=== PATIENT | female | born 2000 | race Caucasian/White ===

== ENCOUNTER 2019-07-14 19:43 | Emergency (ER) | payer SELFPAY ==
[2019-07-14 19:44] VITALS: BP 155/105; PULSE 87; RESP 17; TEMP 36.1; O2SAT 98; BMI 43.0
--- NOTE | 2019-07-14 22:02 | CT_ITS ---
STUDY: CT BRAIN WITHOUT CONTRAST REASON FOR EXAM: Female, 18 years old. Headache RADIATION DOSAGE (If Supplied By Facility): CTDIvol = ( 44.99 ) mGy, DLP = ( 796.11 ) mGycm TECHNIQUE: Transaxial CT imaging of the brain was performed without administration of intravenous contrast material. Individualized dose optimization techniques were used for this CT. COMPARISON: No relevant priors. FINDINGS: Normal soft tissue structures. Normal calvarium. Normal size ventricles and extra-axial spaces for the patient''s age. Normal white matter tracts of the cerebral hemispheres. Normal basal ganglia and thalami. There is a right-sided shunt catheter. Normal brainstem. Normal cerebellum. There is no intracranial hemorrhage. There are no findings of an acute ischemic infarction. Mild left paranasal sinus mucosal thickening. CT/Brain/Head without Contrast IMPRESSION: No acute intracranial pathology of the brain. Left paracentral sinus disease. Electronically Signed: Ludwig Elam DO at 22:56 EST Tel [phone], Service support ,
[2019-07-14 22:15] VITALS: PULSE 101; RESP 16
[2019-07-14] MEDS: Ipratropium/Albuterol Sulfate 3 ML AMPUL.NEB INHALATION (22:15)
[2019-07-14] MEDS: Azithromycin 250 MG Tablet 500 MG PO (22:25)
[2019-07-14] MEDS: predniSONE 20 MG Tablet 40 MG PO (22:25)
[2019-07-14 22:26] VITALS: PULSE 90; RESP 18; O2SAT 99
--- NOTE | 2019-07-14 22:45 | RAD_ITS ---
STUDY: X-RAY CHEST REASON FOR EXAM: Female, 18 years old. COUGH TECHNIQUE: Frontal and lateral views COMPARISON: None. FINDINGS: There is a right-sided shunt catheter. The lungs are clear and expanded. There is no demonstrated pleural abnormality. Normal size heart. Normal mediastinum and nathalie. Normal visualized pulmonary arteries. Normal visualized aortic arch and descending thoracic aorta. Normal visualized thoracic spine. Normal visualized ribs, clavicles, and shoulders. There is no demonstrated abnormality of the visualized soft tissue structures of the upper abdomen. RAD/Chest PA and Lateral IMPRESSION: Normal x-ray examination of the chest. Electronically Signed: Ludwig Elam DO at 23:05 EST Tel [phone], Service support ,
--- NOTE | 2019-07-14 23:15 | ED.DCSUM_ITS ---
- ER Visit Summary Date of Service: 07/14/19 Chief Complaint: Dry cough History of Present Illness: The patient is a 18 F with a dry cough over the past month, worse over the past week and also associated with nausea, vomiting over the past week. Nausea and vomiting is worse after coughing episodes. She also has ongoing headaches. 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 She gets headaches daily since shunt placement. Headaches are worse since she is coughing. Denies any other associated symptoms like neurologic symptoms. Denies fevers. Denies trauma. She has a history of asthma. She tried an inhaler at home, but it is n ot helping. No recent steroids or antibiotics. Physical Examination: Afebrile and vital signs are unremarkable except for blood pressure 155/105. Head and neck atraumatic. HEENT exam unremarkable. Neck nontender with good range of motion. Heart regular. Lungs clear. Abdomen soft. Skin appears normal. No focal or lateralizing neurologic abnormalities grossly. Test Results: Chest x-ray showed nothing acute. CT brain showed nothing acute. Emergency Department Course and Treatment: Patient has signs and symptoms of bronchitis. She has posttussive emesis. She also has ongoing headaches for years. These are worse from coughing. Her symptoms seem to all be related to her ongoing cough. Patient received a breathing treatment, prednisone, azithromycin. On reevaluation, cough is improved, but she continues to have a headache. She was treated with naproxen for her headache and we will also treat with Tessalon Perles. I believe the patient is appropriate for outpatient follow-up based on her results, symptoms, exam. Will prescribe Tessalon, azithromycin, naproxen, and prednisone. Continue inhalers as needed. Follow-up with your outpatient doctors. Return right away for any new or worsening issues. Treatment Plan: As above Disposition: Discharge Impression: 1. Bronchitis 2. Headache This note was generated with [employer] dictation software. It may contain incorrect words, spelling, and punctuation that were not noted in review of the chart prior to signing ED Disposition - Plan for ED Patient: Referrals: Care Physician,No Primary [Primary Care Provider] -
--- NOTE | 2019-07-14 23:18 | ED.DEP ---
ED Disposition - Plan for ED Patient: Instructions: Acute Bronchitis, HEADACHE, Unspecified Prescriptions: Azithromycin 250 mg PO DAILY 4 Days #4 tab Prescription Printed Prednisone [Deltasone] 40 mg PO DAILY #8 tab Prescription Printed Naproxen [Naprosyn] 500 mg PO BID PRN #20 tab Prescription Printed Benzonatate [Tessalon Perle] 200 mg PO TID PRN PRN #20 cap PRN Reason: Cough Prescription Printed Additional Instructions: Follow up with your specialist
[2019-07-14] MEDS: Naproxen 500 MG Tablet PO (23:49)
[2019-07-14] MEDS: Benzonatate 100 MG Capsule 200 MG PO (23:49)
[2019-07-14 23:51] VITALS: BP 140/78; PULSE 98; RESP 18; O2SAT 100
== END 2019-07-14 23:51 | disposition home or self-care (01) ==
PROVIDERS: Emergency Provider Emergency Medicine
DX: J40 Bronchitis, not specified as acute or chronic (principal); R51 Headache; H54.62 Unqualified visual loss, left eye, normal vision right eye; Z98.2 Presence of cerebrospinal fluid drainage device; J45.909 Unspecified asthma, uncomplicated
CPT/HCPCS: 70450; 71046; 94640; 99283

== ENCOUNTER 2019-09-27 23:57 | Emergency (ER) | payer SELFPAY ==
[2019-09-27 23:59] VITALS: BP 164/111; PULSE 84; RESP 16; TEMP 36.7; O2SAT 98; BMI 36.3
--- NOTE | 2019-09-28 00:09 | ED.VIS.GEN ---
History of Present Illness Chief Complaint: Cold Sx Informant: Patient Narrative: Stated she has had a nonproductive cough sore throat sinus congestion for the last 3 days. No home treatment. No fevers or chills. No muscle aches. No nausea vomiting or diarrhea. Came in for further evaluation to make sure she does not have coronavirus. She has no exposures to coronavirus. No risk factors for coronavirus. Current severity is mild. She has sick contacts at work with URI symptoms. Redness of breath. Past Medical History - Allergies and Home Meds Allergies/Adverse Reactions: Allergies No Known Allergies Allergy (Verified 09/28/19 00:01) Primary Care Physician: Care Physician,No Primary [Primary Care Provider] - Prior records reviewed: Yes Past Medical History: - - Hydrocephalus with TECHNICAL SERVICE REP shunt Surgical History: - - TECHNICAL SERVICE REP shunt Lives: With Family Smoking Status: Current every day smoker Alcohol: None Drugs: None Review of Systems General: Denies: Chills, Fever, Sweats Eyes: Denies: Visual changes - bilaterally, Diplopia ENT: Reports: Rhinorrhea, Sore throat Cardiovascular: Denies: Chest pain, Palpitations Respiratory: Reports: Cough. Denies: Dyspnea, Dyspnea on exertion Gastrointestinal: Denies: Abdominal pain, Nausea, Vomiting, Diarrhea, Melena, Hematochezia Genitourinary: Denies: Dysuria, Hematuria, Frequency Musculoskeletal: Denies: Back pain, Extremity Pain Skin: Denies: Rash, Wounds Neurological: Denies: Weakness, Numbness Physical Exam Vital Signs/Narrative: Vital Signs Temp Pulse Resp BP Pulse Ox 09/27/19 23:59 98.0 F 84 16 164/111 H 98 General: Well nourished, Well developed, No Acute Distress Head: Normocephalic, Atraumatic Eyes: Perrl, EOMI ENT: Moist mucous membranes, No rhinorrhea Neck: Supple, Nontender, - - Palpated shunt with no pain Cardiovascular: Regular rate, Regular rhythm, No murmurs Respiratory: No distress, CTA bilaterally, Chest nontender Abdomen: Soft, Nontender, Nondistended, Normal bowel sounds Back: Nontender, Normal Inspection Extremities: Nontender, No edema Skin: Normal color, No rash Neurological: Alert, Oriented x3, Cranial nerves II-XII grossly intact, Normal Strength, Normal Sensation Psychological: Normal affect, Normal Mood Diagnostic/Tx/Re-eval - Medical Decision Making Patient reassured. I do not feel she has coronavirus. She likely has an upper respiratory infection. She will use [id number] symptomatic treatment. I do not feel she needs a flu swab or chest x-ray. She will follow-up as an outpatient. She will continue to monitor her symptoms at home ED Disposition - Plan for ED Patient: Disposition: Psychiatric Hospital or Unit Diagnosis: Upper respiratory infection Instructions: Adult Self-Care for Colds and Flu
[2019-09-28 00:10] VITALS: PULSE 84; RESP 16; O2SAT 98
[2019-09-28] MEDS: Ibuprofen 600 MG Tablet PO (00:19)
== END 2019-09-28 00:25 ==
PROVIDERS: Emergency Provider Emergency Medicine
DX: J06.9 Acute upper respiratory infection, unspecified (principal); F17.200 Nicotine dependence, unspecified, uncomplicated
CPT/HCPCS: 99282

== ENCOUNTER 2020-02-13 07:07 | Emergency (ER) | payer MEDICAID, SELFPAY ==
[2020-02-13 07:08] VITALS: BP 140/80; PULSE 99; RESP 16; TEMP 36.1; O2SAT 98; BMI 45.8
--- NOTE | 2020-02-13 07:56 | ED.VISSUMM ---
- ER Visit Summary Date of Service: 02/13/20 Chief Complaint: Lumps on breast History of Present Illness: The patient is a 19 F who is yet to establish that the [facility]. She is a G1, P0 at approximately 13 weeks of . She reports that she has been getting lumps on her breast intermittently for months. She has one that began 2 days ago. She describes a sharp pain instead of 10 when she touches it. She has no pain when she is not touching it. She states that these have always resolved on their own. This has not drained. Patient reports that yesterday she slipped on wet floor and fell onto her knees and abdomen. She denies any pain from the fall. No loss of consciousness. She denies any vaginal bleeding or discharge. She reports has had nausea in the mornings throughout her . However, she has not vomited. Physical Examination: Vitals: Stable. Afebrile. General: Well-nourished and well-developed. Head: Normocephalic atraumatic. Neck: Supple, no lymphadenopathy. No JVD. Nontender. Cardiovascular: Regular rate and rhythm. No murmurs. Respiratory: No respiratory distress. Clear to auscultation bilaterally. Abdominal: Soft, nontender, nondistended, normal bowel sounds. No guarding, rebound, or peritoneal signs. Back: Nontender. Extremities: Nontender, no edema. Skin: To the left breast there is a 2 cm erythematous area with no induration or fluctuance. This is just superior medial to her nipple. Neurologic: Alert and oriented ?3. Cranial nerves II through XII are intact. Normal strength and sensation. Psych: Normal affect. Test Results: Bedside ultrasound shows good movement/heartbeat. Emergency Department Course and Treatment: Patient was given clindamycin and Zofran p.o. I had a prolonged discussion with her that if this does not improve with conservative management she may end up requiring an incision and drainage. Treatment Plan: Patient was discussed with Taylor Paul. She will be discharged instructions to follow-up the [facility] in 2 days for another exam. She will be placed on clindamycin and Zofran at home. Return to the emergency department for any worsening symptoms. Disposition: To home in improved and stable condition. Impression: 1. Early abscess left breast. 2. Trimester . This note was generated with [employer] dictation software. It may contain incorrect words, spelling, and punctuation that were not noted in review of the chart prior to signing ED Disposition - Plan for ED Patient: Disposition: Home or Assisted Living Instructions: ED Abscess Antibiotic Treatment Only Prescriptions: Clindamycin HCl [Cleocin] 300 mg PO Q6H #28 cap Prescription Printed Ondansetron [Zofran Odt] 4 mg PO Q8H PRN PRN #10 tab PRN Reason: Nausea Prescription Printed Referrals: Taylor Paul CNM [Certified Nurse Gauge Operator] - 2 Days for wound check
[2020-02-13] MEDS: Clindamycin HCl 150 MG Capsule 300 MG PO (08:08)
[2020-02-13] MEDS: Ondansetron ODT 4 MG Tablet PO (08:09)
[2020-02-13 08:11] VITALS: PULSE 80; RESP 16; TEMP 36.6
== END 2020-02-13 08:11 | disposition home or self-care (01) ==
PROVIDERS: Emergency Provider Emergency Medicine
DX: O91.111 Abscess of breast associated with pregnancy, first trimester (principal); Z3A.13 13 weeks gestation of pregnancy; O10.911 Unspecified pre-existing hypertension complicating pregnancy, first trimester
CPT/HCPCS: 99283

== ENCOUNTER 2020-07-06 03:19 | Emergency (ER) | payer MEDICAID, SELFPAY ==
[2020-07-06 03:20] VITALS: BP 164/122; PULSE 118; RESP 20; TEMP 36.9; O2SAT 97; BMI 57.0
--- NOTE | 2020-07-06 03:24 | ED.VIS.GEN ---
History of Present Illness Chief Complaint: Rash Informant: Patient Onset: Days - 4 Context: Gradual Onset Timing: Continuous Quality: itchy, some burning/stinging Location: lower abd wall Current Severity: Severe Maximum Severity: Severe Worsened by: nothing Relieved by: scratching Associated Symptoms: none Narrative: Patient is 33 weeks and otherwise healthy, she has had a red itchy rash in her lower abdominal wall for the past 4 days. She denies any other symptoms. Feeling the baby move, no vaginal symptoms. 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 Denies: Abscess Physical Exam Vital Signs/Narrative: Vital Signs Temp Pulse Resp BP Pulse Ox 07/06/20 03:20 98.5 F 118 H 20 H 164/122 H 97 Inital Vital Signs reviewed: Yes General: Well nourished, Well developed, Obese, No Acute Distress Head: Normocephalic, Atraumatic Eyes: Perrl, EOMI Abdomen: Soft, Nontender, Nondistended, Normal bowel sounds, - - Rash lower abdominal wall, mostly in the middle Skin: Normal color, No Trauma, Rash - Blanching erythema with a peau d'orange appearance, nontender, foul-smelling and moist, lower abdominal wall beneath pannus, intertriginous as well. No abscess. Neurological: Alert, Oriented x3, Cranial nerves II-XII grossly intact, Normal Strength, Normal Sensation, Normal Gait Psychological: Normal affect, Normal Mood Diagnostic/Tx/Re-eval - Medical Decision Making This is likely Lisbeth, given the patient's obesity and the fact that this is intertriginous underneath her abdominal pannus. Will prescribe nystatin powder since it is moist and should be dried out in addition to needing antifungal. Given appropriate discharge instructions and should follow-up with her OB if not improving. ED Disposition - Plan for ED Patient: Disposition: Home or Assisted Living Diagnosis: Cutaneous candidiasis Instructions: ED Fungal Skin Infection (Tinea) Prescriptions: Nystatin Powder [Mycostatin Powder] 1 applic TOPICAL BID 10 Days #1 bottle Prescription Printed Referrals: OB, your [Other] - 1 Week if not improving
== END 2020-07-06 04:04 | disposition home or self-care (01) ==
LOC: ED 03:43
PROVIDERS: Emergency Provider Emergency Medicine
DX: O98.813 Other maternal infectious and parasitic diseases complicating pregnancy, third trimester (principal); B37.2 Candidiasis of skin and nail; Z3A.33 33 weeks gestation of pregnancy; Z87.891 Personal history of nicotine dependence
CPT/HCPCS: 99282

== ENCOUNTER 2020-08-20 17:41 | Emergency (ER) | payer MEDICAID, SELFPAY ==
[2020-08-20 17:42] VITALS: BP 121/90; PULSE 130; RESP 18; TEMP 36.1; O2SAT 98; BMI 51.1
--- NOTE | 2020-08-20 18:09 | ED.VIS.GEN ---
History of Present Illness Chief Complaint: Nausea/Vomiting Informant: Patient Narrative: 19-year-old female presenting with nausea and vomiting. She states she believes that it to be constipated that is causing the problem. Patient is hesitant to have a bowel movement because she just gave and has a extended laceration to around her rectum. She is scared to force it because she does not want to tear the stitches. Patient states that now she is vomiting up everything even fluids. She does not have any nausea medicine at home. She is not had any fever, chills. She does not have any abdominal pain. She does admit to recent urinary frequency which seems to have improved. 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 Denies: Abdominal pain Genitourinary: Reports: Frequency. Denies: Dysuria, Hematuria Musculoskeletal: Denies: Myalgias, Arthralgias Skin: Denies: Rash, Abscess Neurological: Denies: Headache, Weakness Psych: Denies: Depression, Anxiety Physical Exam Vital Signs/Narrative: Vital Signs Temp Pulse Resp BP Pulse Ox 08/20/20 17:42 97.0 F L 130 H 18 121/90 H 98 Inital Vital Signs reviewed: Yes General: Well nourished, No Acute Distress Head: Normocephalic, Atraumatic Eyes: Perrl, EOMI ENT: Moist mucous membranes, No rhinorrhea Cardiovascular: Regular rate, Regular rhythm Respiratory: No distress, CTA bilaterally Abdomen: Soft, Nontender, Nondistended Rectal: - - Patient is deferred rectal exam for wound inspection Extremities: Nontender, No edema Skin: Normal color, No rash Neurological: Alert, Oriented x3 Psychological: Normal affect, Normal Mood Diagnostic/Tx/Re-eval Laboratory Data 08/20/20 08/20/20 08/20/20 18:25 18:25 18:38 WBC 9.0 RBC 3.29 L Hgb 8.5 L Hct 28.4 L MCV 86.3 MCH 25.8 L MCHC 29.9 L RDW Std Deviation 49.5 H RDW Coeff of [place] 15.7 H Plt Count 393 MPV 9.0 Immature Gran % (Auto) 0.400 Neut % (Auto) 70.5 H Lymph % (Auto) 17.0 L [place] % (Auto) 11.3 H Eos % (Auto) 0.4 Baso % (Auto) 0.4 Absolute Neuts (auto) 6.3 Absolute Lymphs (auto) 1.53 Nucleated RBC % 0 Sodium 144 Potassium 3.0 L Chloride 110 H Carbon Dioxide 25.0 Anion Gap 9 BUN 11 Creatinine 1.11 H Estim Creat Clear Calc 72.75 Est GFR (MDRD) Af Amer 80 Est GFR (MDRD) Non-Af 66 BUN/Creatinine Ratio 9.9 L Glucose 95 Calcium 8.4 L Urine Color Yellow Urine Clarity Cloudy Urine pH 6.0 Ur Specific [place] 1.015 Urine Protein 100 H Urine Glucose (UA) Normal Urine Ketones 5 H Urine Occult Blood 250 H Urine Nitrite Negative Urine Bilirubin Negative Urine Urobilinogen 1 H Ur Leukocyte Esterase 500 H Urine RBC 0 SEEN Urine WBC >100 SEEN Ur Squamous Epith Cells 0 SEEN Urine Bacteria 0 SEEN Urine Mucus 0 SEEN - Medical Decision Making 19-year-old female presenting with constipation, nausea vomiting. Patient states that she is holding in her stool because she has a large vaginal tear from giving which extended into her rectal area. She is concerned that she will tear the stitches. She is hesitant to use MiraLAX because she is scared that she will have uncontrolled bowel movement that rips her stitches as well. He has not had the ability to hold down food or fluids. I did check lab work and her CBC shows that she is anemic with a hemoglobin of 8.5. There is no comparison in our system but she did just give so this would not be entirely abnormal. Patient is found to have hyponatremia with normal renal function. She is given 40 mEq of potassium. She is found to have UTI as well and is given 500 mg of Keflex. She is tolerating these medications here. I will give her prescription for another dose of potassium tomorrow as well as a prescription for Keflex and Zofran. Patient stable for discharge at this time. Impression: 1. Nausea/vomiting 2. UTI 3. Anemia 4. Constipation ED Disposition - Plan for ED Patient: Disposition: Home or Assisted Living Instructions: ED Constipation (Adult), ED Hypokalemia, ED Vomiting (Adult), ED Urinary Tract Infections in Women Prescriptions: Cephalexin [Keflex] 500 mg PO Q12 #14 cap Transmission Status: Received by EDWIN SINGH RD Potassium Chl Soln 40 meq PO X1 #2 udc Transmission Status: Received by EDWIN SINGH RD Ondansetron [Zofran Odt] 4 mg PO Q8H PRN PRN #20 tab PRN Reason: Nausea Transmission Status: Received by EDWIN SINGH RD Referrals: Care Physician,No Primary [Primary Care Provider] -
[2020-08-20 18:34] LABS: Absolute Lymphocyte Count 1.53 X10^3/uL (0.83-4.51); Absolute Neutrophil Count 6.3 X10^3/uL (2.0-7.7); Basophil# 0.04 X10^3/uL; Basophil% 0.4 % (0-1); Eosinophil# 0.04 X10^3/uL; Eosinophils% 0.4 % (0-5); Hematocrit 28.4 % (37-47); Hemoglobin 8.5 g/dL (12.0-15.0); Lymphocyte # 1.53 X10^3/ul (4.0); Mean Corp Hgb Conc 29.9 g/dL (32-36); Mean Corpuscular Hgb 25.8 pg (27.0-32.0); Mean Corpuscular Volume 86.3 fL (81-99); Monocyte# 1.02 X10^3/uL; Monocyte% 11.3 % (0-10); NRBC Flagged by Analyzer 0 % (0-5); Neutrophil # 6.34 X10^3/uL (2.7-7.7); Neutrophil % 70.5 % (47-70); Platelet Count 393 K/mm3 (150-450); RBC Distribution Width CV 15.7 % (11.6-14.6); RBC Distribution Width SD 49.5 fl (35.1-43.9); Red Blood Count 3.29 M/mm3 (4.2-5.4)
[2020-08-20] MEDS: 0.9% Normal Saline 1,000 ML 1000 ML IV (18:35)
[2020-08-20] MEDS: Ondansetron 4 MG/2 ML Vial IV (18:35)
[2020-08-20 18:45] LABS: Bacteria 0 SEEN /hpf (None Seen); Mucous, Urine 0 SEEN /hpf (<or=2+); Red Blood Cells-Urine 0 SEEN /hpf (0-5); Squamous Epithelial Cells - UA 0 SEEN /hpf (5-10)
[2020-08-20 18:47] LABS: Color, Urine Yellow (Yellow); Glucose, Dipstick Normal (Normal); Ketone-Dipstick 5 mg/dl (Negative); Leukocyte Esterase-Dipstick 500 /ul (Negative); Nitrite-Dipstick Negative (Negative); Occult Blood-Urine 250 /ul (Negative); Protein-Dipstick 100 mg/dl (Negative); Specific Gravity, Urine 1.015 (1.002-1.030); Urine Bilirubin Dipstick Negative (Negative); Urine Clarity Cloudy (Clear); Urine Urobilinogen 1 mg/dl (Normal)
[2020-08-20 18:48] LABS: Anion Gap 9 (5-15); BUN 11 mg/dL (7-18); BUN/Creat Ratio 9.9 RATIO (10-20); Calcium,Total 8.4 mg/dL (8.5-10.1); Chloride 110 mmol/L (98-107); Creatinine, Serum 1.11 mg/dL (0.55-1.02); EST Glomerular Filtration Rate 66 mL/min (>60); Est Glom Filt Rate - Afr Amer 80 mL/min (>60); Estimated Creatinine Clearance 72.75 ml/min; Glucose 95 mg/dL (74-106); Sodium Level 144 mmol/L (136-145)
[2020-08-20 18:56] LABS: White Blood Cells >100 SEEN /hpf (0-5)
[2020-08-20] MEDS: Cephalexin 250 MG Capsule 500 MG PO (19:20)
[2020-08-20 20:29] VITALS: BP 152/91; PULSE 87; RESP 23; O2SAT 100
[2020-08-20 20:45] VITALS: BP 145/77; PULSE 106; RESP 16
== END 2020-08-20 20:45 | disposition home or self-care (01) ==
PROVIDERS: Emergency Provider Student in an Organized Health Care Education/Training Program
DX: K59.00 Constipation, unspecified (principal); N39.0 Urinary tract infection, site not specified; R11.2 Nausea with vomiting, unspecified; D64.9 Anemia, unspecified; Z87.891 Personal history of nicotine dependence
CPT/HCPCS: 80048; 81001; 85025; 87086; 87088; 87186; 96361; 96374; 99284; J7030; A4216; J2405